=== PATIENT | male | born 1980 | race Two or more races ===

== ENCOUNTER 2018-03-19 10:55 | Day surgery (SDC) | payer BC ==
[2018-03-19] VITALS (10 sets, daily range): BP systolic 107–151; BP diastolic 64–87
[~2018-03-19] VITALS: Ht 175.3 cm; Wt 106.0 kg
[2018-03-19] MEDS ORDERED: normal saline 1000ml 1,000 ML IV SCH (11:20)
[2018-03-19] MEDS ORDERED: HYDR-565 PO (13:14)
[2018-03-19] MEDS ORDERED: MORP15TA PO (13:14)
[2018-03-19] MEDS ORDERED: midazolam 2 mg/2 ml injection IV PRN (13:35)
[2018-03-19] MEDS ORDERED: fentaNYL/PF 50MCG/1 ML 2ML syringe IV PRN (13:35)
[2018-03-19] MEDS ORDERED: LIDOcaine 0.5% (5mg/ml) 50ml vial ONE (13:43)
[2018-03-19] MEDS ORDERED: midazolam 2 mg/2 ml injection ONE (14:02)
[2018-03-19] MEDS ORDERED: fentaNYL/PF 50MCG/1 ML 2ML syringe ONE ×2 (14:02→14:24)
== END 2018-03-19 15:35 | disposition home or self-care (01) ==
LOC: SSTAY O 10:55
PROVIDERS: ATTEND Radiology Diagnostic Radiology
DX: K65.1 Peritoneal abscess (principal); B96.20 Unspecified Escherichia coli [E. coli] as the cause of diseases classified elsewhere; I10 Essential (primary) hypertension; Z90.49 Acquired absence of other specified parts of digestive tract; Z87.19 Personal history of other diseases of the digestive system
CPT/HCPCS: 10160; 77012; 87070; 87186; J2001; J2250; J3010; J7030; 87077; 99152; 99153; C1769

== ENCOUNTER 2018-03-25 09:03 | Outpatient (CLI) | payer BC ==
[~2018-03-25 09:03] MED LIST: HYDR-565 PO; MORP15TA PO
== END 2018-03-25 23:59 | disposition home or self-care (01) ==
LOC: RAD 09:03
PROVIDERS: ATTEND Surgery
DX: Z00.8 Encounter for other general examination (principal); I10 Essential (primary) hypertension; F17.200 Nicotine dependence, unspecified, uncomplicated; Z90.49 Acquired absence of other specified parts of digestive tract
CPT/HCPCS: 76857

== ENCOUNTER 2020-08-23 14:25 | Emergency (ER) | payer BC, MEDICAID ==
[~2020-08-23] VITALS: Ht 177.8 cm; Wt 114.0 kg
[~2020-08-23 14:25] MED LIST changes: +HYDR-4353 PO; -HYDR-565 PO
[2020-08-23 15:24] LABS: BASOPHILS # (AUTO) 0.1 X10'3 (0-0.2); BASOPHILS % (AUTO) 0.8 % (0-1); EOSINOPHILS # (AUTO) 0.2 X10'3 (0-0.9); EOSINOPHILS % (AUTO) 2.2 % (0-6); HEMATOCRIT 48.1 % (42.0-52.0); HEMOGLOBIN 16.6 g/dl (14.0-17.9); LYMPHOCYTES # (AUTO) 2.9 X10'3 (1.1-4.8); LYMPHOCYTES % (AUTO) 36.5 % (21-51); MEAN CORPUSCULAR HEMOGLOBIN 31.2 PG (27.0-31.0); MEAN CORPUSCULAR HGB CONC 34.5 g/dL (33.0-36.5); MEAN CORPUSCULAR VOLUME 90.4 FL (78-98); MEAN PLATELET VOLUME 7.7 FL (7.4-10.4); MONOCYTES # (AUTO) 0.6 X10'3 (0-0.9); MONOCYTES % (AUTO) 7.9 % (2-12); NEUTROPHILS # (AUTO) 4.1 X10'3 (1.8-7.7); NEUTROPHILS % (AUTO) 52.6 % (42-75); PLATELET COUNT 286 X10'3 (140-440); RED BLOOD COUNT 5.32 X10'6 (4.70-6.10); RED CELL DISTRIBUTION WIDTH 14.1 % (11.5-14.5); WHITE BLOOD COUNT 7.8 X10'3 (4.5-11.0)
[2020-08-23 15:39] LABS: ALANINE AMINOTRANSFERASE 67 U/L (12-78); ALBUMIN/GLOBULIN RATIO 1.1 (1.1-1.5); ALKALINE PHOSPHATASE 74 IU/L (46-116); ANION GAP 9 (8-16); ASPARTATE AMINO TRANSFERASE 32 U/L (10-37); BILIRUBIN,TOTAL 0.7 MG/DL (0.1-1.0); BLOOD UREA NITROGEN 15 MG/DL (7-18); BUN/CREATININE RATIO 14.9 (5.4-32.0); CHLORIDE 102 MMOL/L (99-107); CREATININE 1.01 MG/DL (0.60-1.10); GLUCOSE 103 MG/DL (70-104); POTASSIUM 3.6 MMOL/L (3.5-5.1); SODIUM 139 MMOL/L (135-145); TOTAL CARBON DIOXIDE 28.4 MMOL/L (24-32); TOTAL PROTEIN 7.8 G/DL (6.4-8.2); eGFR 81 ML/MIN
[2020-08-23 16:32] LABS: D-DIMER 0.26 MG/L FEU (0-0.50)
[2020-08-23 17:14] VITALS: BP 171/103
== END 2020-08-23 17:04 | disposition home or self-care (01) ==
LOC: ER 14:27
DX: R07.89 Other chest pain (principal); R09.1 Pleurisy; F17.210 Nicotine dependence, cigarettes, uncomplicated; I10 Essential (primary) hypertension; Z79.899 Other long term (current) drug therapy
CPT/HCPCS: 36415; 71045; 80053; 83880; 84484; 85025; 85379; 93005; 99285

== ENCOUNTER 2020-11-04 09:29 | Emergency (ER) | payer MEDICAID ==
[~2020-11-04] VITALS: Ht 177.8 cm; Wt 111.4 kg
[2020-11-04 09:32] VITALS: BP 156/108
[2020-11-04] MEDS ORDERED: AMOX-422 PO (11:19)
[2020-11-04] MEDS: TETanus/Pertussis (Acell)/Diphther VAC/PF (Tdap-Adult) 0.5ml syringe IMVAC ONE (11:36)
== END 2020-11-04 11:43 | disposition home or self-care (01) ==
LOC: ER 09:30
DX: S80.812A Abrasion, left lower leg, initial encounter (principal); I10 Essential (primary) hypertension; Z79.2 Long term (current) use of antibiotics; Z79.899 Other long term (current) drug therapy; Z20.3 Contact with and (suspected) exposure to rabies; W54.0XXA Bitten by dog, initial encounter; Y93.89 Activity, other specified; Y92.89 Other specified places as the place of occurrence of the external cause; Y99.8 Other external cause status
CPT/HCPCS: 90471; 90715; 99283

== ENCOUNTER 2022-08-26 09:41 | Emergency (ER) | payer MEDICAID ==
[~2022-08-26] VITALS: Ht 175.3 cm; Wt 113.6 kg
[2022-08-26 10:28] LABS: BASOPHILS % (AUTO) 0.8 % (0-1); EOSINOPHILS # (AUTO) 0.1 X10'3 (0-0.9); EOSINOPHILS % (AUTO) 1.7 % (0-6); HEMATOCRIT 46.9 % (42.0-52.0); HEMOGLOBIN 16.2 g/dl (14.0-17.9); LYMPHOCYTES # (AUTO) 2.6 X10'3 (1.1-4.8); LYMPHOCYTES % (AUTO) 43.6 % (21-51); MEAN CORPUSCULAR HEMOGLOBIN 30.9 PG (27.0-31.0); MEAN CORPUSCULAR HGB CONC 34.6 g/dL (33.0-36.5); MEAN CORPUSCULAR VOLUME 89.3 FL (78-98); MEAN PLATELET VOLUME 7.6 FL (7.4-10.4); MONOCYTES # (AUTO) 0.4 X10'3 (0-0.9); MONOCYTES % (AUTO) 6.5 % (2-12); NEUTROPHILS # (AUTO) 2.8 X10'3 (1.8-7.7); NEUTROPHILS % (AUTO) 47.4 % (42-75); PLATELET COUNT 249 X10'3 (140-440); RED BLOOD COUNT 5.24 X10'6 (4.70-6.10); RED CELL DISTRIBUTION WIDTH 13.7 % (11.5-14.5); WHITE BLOOD COUNT 5.9 X10'3 (4.5-11.0)
[2022-08-26 10:34] LABS: ALANINE AMINOTRANSFERASE 78 U/L (12-78); ALBUMIN 3.9 G/DL (3.4-5.0); ALBUMIN/GLOBULIN RATIO 1.1 (1.1-1.5); ALKALINE PHOSPHATASE 75 IU/L (46-116); ANION GAP 8 (8-16); ASPARTATE AMINO TRANSFERASE 32 U/L (10-37); BILIRUBIN,TOTAL 0.7 MG/DL (0.1-1.0); BLOOD UREA NITROGEN 10 MG/DL (7-18); CALCIUM 9.4 MG/DL (8.5-10.1); CHLORIDE 105 MMOL/L (99-107); CREATININE 0.83 MG/DL (0.60-1.10); GLUCOSE 179 MG/DL (70-104); POTASSIUM 3.7 MMOL/L (3.5-5.1); SODIUM 141 MMOL/L (135-145); TOTAL CARBON DIOXIDE 27.7 MMOL/L (24-32); TOTAL PROTEIN 7.5 G/DL (6.4-8.2); eGFR > 90 ML/MIN
[2022-08-26 10:40] LABS: D-DIMER 0.25 MG/L FEU (0-0.50)
[2022-08-26 11:33] VITALS: BP 145/94
== END 2022-08-26 11:39 | disposition home or self-care (01) ==
LOC: ER 09:42
DX: R07.9 Chest pain, unspecified (principal); I10 Essential (primary) hypertension; Z88.0 Allergy status to penicillin; Z88.2 Allergy status to sulfonamides; Z79.899 Other long term (current) drug therapy
CPT/HCPCS: 36415; 71045; 80053; 83880; 84484; 85025; 85379; 93005; 99285

== ENCOUNTER 2024-03-12 11:43 | Inpatient (IN) | payer BC, MEDICAID ==
[~2024-03-12] VITALS: Ht 175.3 cm; Wt 118.3 kg
[2024-03-12 13:05] LABS: BASOPHILS # (AUTO) 0.1 X10'3 (0-0.2); BASOPHILS % (AUTO) 0.6 % (0-1); EOSINOPHILS # (AUTO) 0.3 X10'3 (0-0.9); EOSINOPHILS % (AUTO) 2.9 % (0-6); HEMATOCRIT 48.9 % (42.0-52.0); HEMOGLOBIN 16.7 g/dl (14.0-17.9); LYMPHOCYTES # (AUTO) 3.2 X10'3 (1.1-4.8); LYMPHOCYTES % (AUTO) 29.5 % (21-51); MEAN CORPUSCULAR HEMOGLOBIN 30.2 PG (27.0-31.0); MEAN CORPUSCULAR VOLUME 88.7 FL (78-98); MEAN PLATELET VOLUME 7.8 FL (7.4-10.4); MONOCYTES # (AUTO) 0.6 X10'3 (0-0.9); MONOCYTES % (AUTO) 5.9 % (2-12); NEUTROPHILS # (AUTO) 6.6 X10'3 (1.8-7.7); NEUTROPHILS % (AUTO) 61.1 % (42-75); PLATELET COUNT 279 X10'3 (140-440); RED BLOOD COUNT 5.52 X10'6 (4.70-6.10); RED CELL DISTRIBUTION WIDTH 14.1 % (11.5-14.5); WHITE BLOOD COUNT 10.8 X10'3 (4.5-11.0)
[2024-03-12 13:23] LABS: ALANINE AMINOTRANSFERASE 93 U/L (12-78); ALBUMIN 3.9 G/DL (3.4-5.0); ALBUMIN/GLOBULIN RATIO 1.1 (1.1-1.5); ALKALINE PHOSPHATASE 94 IU/L (46-116); ANION GAP 10 (8-16); ASPARTATE AMINO TRANSFERASE 31 U/L (10-37); BILIRUBIN,TOTAL 0.3 MG/DL (0.1-1.0); BLOOD UREA NITROGEN 8 MG/DL (7-18); BUN/CREATININE RATIO 9.4 (10.0-20.0); CALCIUM 9.3 MG/DL (8.5-10.1); CHLORIDE 102 MMOL/L (99-107); CREATININE 0.85 MG/DL (0.60-1.10); GLUCOSE 153 MG/DL (70-104); POTASSIUM 3.8 MMOL/L (3.5-5.1); SODIUM 138 MMOL/L (135-145); TOTAL CARBON DIOXIDE 26.3 MMOL/L (24-32); TOTAL PROTEIN 7.4 G/DL (6.4-8.2); eCRCL 111 ML/MIN; eGFR > 90 ML/MIN
[2024-03-12 13:53] LABS: LIPASE > 375 U/L (16-77)
[2024-03-12] MEDS ORDERED: iohexol 350MG/ML 100ml bottle IV ONE (15:36)
[2024-03-12] MEDS ORDERED: metroNIDAZOLE-Flagyl 750mg/NS 150 ML IV ONE (16:40)
[2024-03-12 16:45] LABS: BILIRUBIN,URINE NEGATIVE (Neg); COLOR,URINE YELLOW (Yellow); GLUCOSE, URINE NEGATIVE (Neg); KETONES,URINE NEGATIVE (Neg); LEUKOCYTE ESTERASE ,URINE NEGATIVE (Neg); NITRITES, URINE NEGATIVE (Neg); OCCULT BLOOD,URINE NEGATIVE (Neg); PH,URINE 5.5 (4.8-8.0); PROTEIN,URINE NEGATIVE (Neg); UROBILINOGEN,URINE 0.2 E.U/dL (0.2-1.0)
[2024-03-12 16:52] LABS: CLARITY,URINE CLOUDY (Clear); UA COLLECTION TYPE CLN CATCH MIDSTREAM
[2024-03-12 16:54] LABS: HYALINE CASTS 0-3 /LPF (NEGATIVE); MUCUS STRANDS MODERATE /LPF (Neg); SQUAMOUS EPITHELIAL CELL,UR FEW /LPF (FEW)
[2024-03-12 16:55] LABS: CAL OXALATE CRYSTALS 4+ /HPF (NEGATIVE)
[2024-03-12 16:56] LABS: BACTERIA,URINE NONE SEEN /HPF (Neg); RBC,URINE 0-2 /HPF (0-2); WBC,URINE 0-4 /HPF (0-4)
[2024-03-12] MEDS: normal saline 1000ml 1,000 ML IV ONE (17:05)
[2024-03-12] MEDS: metroNIDAZOLE-Flagyl 500mg/NS 100ML IVPB IV ONE (17:40)
[2024-03-12 17:44] LABS: AMYLASE 238 U/L (25-115)
[2024-03-12 18:10] LABS: LIPASE > 375 U/L (16-77)
[2024-03-12] MEDS: HYDROmorphone inj. 0.5 MG/0.5 ML DISP.SYRIN IV ONE (18:53)
[2024-03-12] MEDS: levoFLOXACIN-Levaquin 750MG/D5 150 ML IV ONE (18:57)
[2024-03-12] MEDS ORDERED: morphine 2 MG/ML inj. syringe IV PRN (20:15)
[2024-03-12] MEDS ORDERED: potassium Cl 40MEQ/1/2NS 520ml 520 ML IV PRN (20:15)
[2024-03-12] MEDS ORDERED: acetaminophen 325mg tablet PO PRN (20:15)
[2024-03-12] MEDS ORDERED: mag hydrox/Alum hydrox/simeth 30ml oral suspension PO PRN (20:15)
[2024-03-12] MEDS ORDERED: magnesium Cl slow-release 64mg tablet PO PRN (20:15)
[2024-03-12] MEDS ORDERED: magnesium 4gm in 100ml NS 100 ML IV PRN (20:15)
[2024-03-12] MEDS ORDERED: potassium Cl 20 mEq SR tablet PO PRN ×2 (20:15)
[2024-03-12] MEDS ORDERED: magnesium 2GM in 50ml NS 50 ML IV PRN (20:15)
[2024-03-12] MEDS ORDERED: METF-436 PO (21:16)
[2024-03-12] MEDS ORDERED: VALS80TA32 PO (21:16)
[2024-03-12] MEDS: ringers solution, lacted 1,000 ML IV SCH (21:27)
[2024-03-12] MEDS ORDERED: glucagon, human recombinant 1mg kit SUBCUT PRN (22:45)
[2024-03-12] MEDS ORDERED: DEXTROSE 15 GM of carb/4 tabs (each vial/BOTTLE has 4 tablets) PO PRN ×2 (22:45)
[2024-03-12] MEDS ORDERED: dextrose 50%-water 50ml dispensing syringe IV PRN ×2 (22:45)
[2024-03-12 23:19] LABS: HEMOGLOBIN A1C 6.4 % (4.5-6.2)
[2024-03-13] MEDS: metroNIDAZOLE-Flagyl 500mg/NS 100 ML IV SCH (00:11)
[2024-03-13] MEDS: INSULIN LISPRO 100 UNIT/ML INSULN.PEN MULTI-DOSE SQ SCH (07:00)
[2024-03-13] MEDS: pantoprazole 40mg Tablet.DR PO SCH (07:30)
[2024-03-13] MEDS: K and/or MAG REPLACEMENT MC SCH (08:00)
[2024-03-13 08:11] LABS: BASOPHILS % (AUTO) 0.4 % (0-1); EOSINOPHILS # (AUTO) 0.3 X10'3 (0-0.9); EOSINOPHILS % (AUTO) 3.9 % (0-6); HEMATOCRIT 47.5 % (42.0-52.0); HEMOGLOBIN 16.3 g/dl (14.0-17.9); LYMPHOCYTES # (AUTO) 3.3 X10'3 (1.1-4.8); LYMPHOCYTES % (AUTO) 40.1 % (21-51); MEAN CORPUSCULAR HEMOGLOBIN 30.3 PG (27.0-31.0); MEAN CORPUSCULAR HGB CONC 34.4 g/dL (33.0-36.5); MEAN PLATELET VOLUME 7.7 FL (7.4-10.4); MONOCYTES # (AUTO) 0.5 X10'3 (0-0.9); MONOCYTES % (AUTO) 5.9 % (2-12); NEUTROPHILS # (AUTO) 4.2 X10'3 (1.8-7.7); NEUTROPHILS % (AUTO) 49.7 % (42-75); PLATELET COUNT 258 X10'3 (140-440); RED BLOOD COUNT 5.39 X10'6 (4.70-6.10); RED CELL DISTRIBUTION WIDTH 14.1 % (11.5-14.5); WHITE BLOOD COUNT 8.4 X10'3 (4.5-11.0)
[2024-03-13 08:44] LABS: ALANINE AMINOTRANSFERASE 94 U/L (12-78); ALBUMIN 3.5 G/DL (3.4-5.0); ALKALINE PHOSPHATASE 66 IU/L (46-116); ANION GAP 6 (8-16); ASPARTATE AMINO TRANSFERASE 39 U/L (10-37); BILIRUBIN,TOTAL 0.8 MG/DL (0.1-1.0); BLOOD UREA NITROGEN 8 MG/DL (7-18); BUN/CREATININE RATIO 9.9 (10.0-20.0); CALCIUM 8.7 MG/DL (8.5-10.1); CHLORIDE 105 MMOL/L (99-107); CREATININE 0.81 MG/DL (0.60-1.10); GLUCOSE 123 MG/DL (70-104); MAGNESIUM 1.9 MG/DL (1.5-2.4); POTASSIUM 4.1 MMOL/L (3.5-5.1); SODIUM 140 MMOL/L (135-145); TOTAL CARBON DIOXIDE 29.3 MMOL/L (24-32); TOTAL PROTEIN 7.1 G/DL (6.4-8.2); eCRCL 116 ML/MIN; eGFR > 90 ML/MIN
[2024-03-13] MEDS: ondansetron/PF 4mg/2ml inj IV PRN (08:47)
[2024-03-13] MEDS: losartan 50mg tablet PO SCH (08:47)
[2024-03-13] MEDS: docusate sod 100mg capsule PO SCH (08:47)
[2024-03-13] MEDS: morphine 2 MG/ML inj. syringe IV PRN (08:48)
[2024-03-13 09:21] LABS: C-REACTIVE PROTEIN 0.24 MG/DL (0.0-0.5); LIPASE 47 U/L (16-77)
[2024-03-13] MEDS ORDERED: haloperidol 5mg tablet PO PRN (12:05)
[2024-03-13] MEDS ORDERED: LORazepam 1 MG tablet PO PRN (12:05)
[2024-03-13] MEDS: folic acid 1mg/0.2ml inj IV SCH (12:05)
[2024-03-13] MEDS: normal saline 1000ml 1,000 ML IV SCH (13:59)
[2024-03-13] MEDS: pantoprazole 40 MG vial IV SCH (14:03)
[2024-03-13] MEDS: thiamine 100mg/ml 2ml inj. IV SCH (14:05)
[2024-03-13 14:23] LABS: URINE AMPHETAMINE SCREEN NEGATIVE (Neg); URINE BARBITUATE SCREEN NEGATIVE (Neg); URINE BENZODIAZEPINES SCREEN NEGATIVE (Neg); URINE CANNABINOID SCREEN POSITIVE (Neg); URINE COCAINE SCREEN NEGATIVE (Neg); URINE METHADONE SCREEN NEGATIVE (Neg); URINE OPIATE SCREEN NEGATIVE (Neg); URINE PHENCYCLIDINE SCREEN NEGATIVE (Neg)
[2024-03-13 18:00] VITALS: BP 136/73; PULSE 74; RESP 15; TEMP 97.9; O2SAT 98
[2024-03-13 20:00] VITALS: RESP 18; O2SAT 98
[2024-03-13] MEDS: enoxaparin 40mg/0.4ml syringe SUBCUT SCH (20:00)
[2024-03-13] MEDS: levoFLOXACIN-Levaquin 750MG/D5 150 ML IV SCH (21:02)
[2024-03-13 22:00] VITALS: BP 144/97; PULSE 68; RESP 18; TEMP 98.8; O2SAT 77; O2SAT 97
[2024-03-14 06:00] VITALS: BP 131/83; PULSE 83; RESP 18; TEMP 98; O2SAT 96
[2024-03-14 06:51] LABS: BASOPHILS % (AUTO) 0.4 % (0-1); EOSINOPHILS # (AUTO) 0.2 X10'3 (0-0.9); EOSINOPHILS % (AUTO) 2.8 % (0-6); HEMATOCRIT 49.7 % (42.0-52.0); HEMOGLOBIN 17.2 g/dl (14.0-17.9); LYMPHOCYTES # (AUTO) 3.4 X10'3 (1.1-4.8); LYMPHOCYTES % (AUTO) 39.8 % (21-51); MEAN CORPUSCULAR HEMOGLOBIN 30.7 PG (27.0-31.0); MEAN CORPUSCULAR HGB CONC 34.6 g/dL (33.0-36.5); MEAN CORPUSCULAR VOLUME 88.7 FL (78-98); MEAN PLATELET VOLUME 7.5 FL (7.4-10.4); MONOCYTES # (AUTO) 0.6 X10'3 (0-0.9); MONOCYTES % (AUTO) 7.1 % (2-12); NEUTROPHILS # (AUTO) 4.2 X10'3 (1.8-7.7); NEUTROPHILS % (AUTO) 49.9 % (42-75); PLATELET COUNT 288 X10'3 (140-440); RED CELL DISTRIBUTION WIDTH 14.2 % (11.5-14.5); WHITE BLOOD COUNT 8.5 X10'3 (4.5-11.0)
[2024-03-14 07:11] LABS: ALANINE AMINOTRANSFERASE 98 U/L (12-78); ALBUMIN 3.9 G/DL (3.4-5.0); ALKALINE PHOSPHATASE 68 IU/L (46-116); ANION GAP 6 (8-16); ASPARTATE AMINO TRANSFERASE 44 U/L (10-37); BILIRUBIN,TOTAL 1.2 MG/DL (0.1-1.0); BLOOD UREA NITROGEN 8 MG/DL (7-18); CALCIUM 8.9 MG/DL (8.5-10.1); CHLORIDE 102 MMOL/L (99-107); CREATININE 0.89 MG/DL (0.60-1.10); GLUCOSE 137 MG/DL (70-104); LIPASE 41 U/L (16-77); POTASSIUM 3.6 MMOL/L (3.5-5.1); SODIUM 138 MMOL/L (135-145); TOTAL CARBON DIOXIDE 29.6 MMOL/L (24-32); TOTAL PROTEIN 7.8 G/DL (6.4-8.2); eCRCL 106 ML/MIN; eGFR > 90 ML/MIN
[2024-03-14] MEDS: chlorthalidone 25mg tablet PO SCH (08:46)
[2024-03-14] MEDS: multivitamins, therapeutics tablet PO SCH (08:49)
[2024-03-14] MEDS ORDERED: thiamine tablet PO (12:47)
[2024-03-14] MEDS ORDERED: CHLO25TA11 PO (12:47)
[2024-03-14] MEDS ORDERED: LACT1CAP26 PO (12:47)
[2024-03-14] MEDS ORDERED: FOLI1TAB27 PO (12:47)
[2024-03-14] MEDS ORDERED: METR-349 PO (12:47)
[2024-03-14] MEDS ORDERED: PANTOPRAZOLE 40 MG (12:47)
[2024-03-14] MEDS ORDERED: LEVO750T68 PO (12:47)
[2024-03-17] MEDS ORDERED: thiamine 100mg tablet PO SCH (08:00)
[2024-03-18] MEDS ORDERED: folic acid 1mg tablet PO SCH (08:00)
== END 2024-03-14 13:30 | disposition home or self-care (01) | DRG 391 ==
LOC: ER 11:43 → UNDOADMIN 20:14 → ED HOLD 20:14 → ORTHO 4S 03-13 15:20
PROVIDERS: ADMIT Surgery Surgical Critical Care; ATTEND Family Medicine
DX: K29.70 Gastritis, unspecified, without bleeding (principal); K85.90 Acute pancreatitis without necrosis or infection, unspecified; K57.32 Diverticulitis of large intestine without perforation or abscess without bleeding; I10 Essential (primary) hypertension; E11.9 Type 2 diabetes mellitus without complications; F10.10 Alcohol abuse, uncomplicated; K52.9 Noninfective gastroenteritis and colitis, unspecified; Z88.2 Allergy status to sulfonamides; Z88.0 Allergy status to penicillin; Z91.013 Allergy to seafood; Z79.899 Other long term (current) drug therapy
CPT/HCPCS: 36415; 74177; 80053; 80305; 81001; 82150; 82948; 83036; 83605; 83690; 83735; 84132; 84145; 85025; 86140; 87081; 99291; C9113; G0378; J1170; J1956; J2270; J2405; J3411; J3490; J7030; J7120; Q9967

== ENCOUNTER 2024-08-28 07:29 | Day surgery (SDC) | payer BC ==
[~2024-08-28] VITALS: Ht 177.8 cm; Wt 111.3 kg
[~2024-08-28 07:29] MED LIST changes: +ALBUTEROL; -HYDR-4353 PO; +LIPA1CAP18 PO; +METF-436 PO; -MORP15TA PO; +SILD25TA PO; +SUMA50TA17
[2024-08-28 07:48] VITALS: BP 152/89; PULSE 74; RESP 16; TEMP 97.8
[2024-08-28] MEDS ORDERED: simethicone 40mg/0.6ml oral drops 30ml ONE (08:22)
[2024-08-28] MEDS ORDERED: propofol inj 20 ML IV ONE ×3 (08:28→08:52)
[2024-08-28 09:05] VITALS: BP 129/83; PULSE 69; RESP 13; O2SAT 100
[2024-08-28 09:15] VITALS: BP 121/88; PULSE 75; RESP 14; O2SAT 100
[2024-08-28 09:25] VITALS: BP 135/86; PULSE 68; RESP 16; O2SAT 99
[2024-08-28 09:35] VITALS: BP 144/88; PULSE 70; RESP 18; O2SAT 99
== END 2024-08-28 09:40 | disposition home or self-care (01) ==
LOC: GI LAB 07:29
PROVIDERS: ATTEND Internal Medicine Gastroenterology
DX: R19.4 Change in bowel habit (principal); R11.0 Nausea; R10.13 Epigastric pain; K57.30 Diverticulosis of large intestine without perforation or abscess without bleeding; K29.50 Unspecified chronic gastritis without bleeding; K21.00 Gastro-esophageal reflux disease with esophagitis, without bleeding; K63.3 Ulcer of intestine; I10 Essential (primary) hypertension; E11.9 Type 2 diabetes mellitus without complications; Z86.73 Personal history of transient ischemic attack (TIA), and cerebral infarction without residual deficits; Z79.84 Long term (current) use of oral hypoglycemic drugs; Z79.899 Other long term (current) drug therapy; Z90.49 Acquired absence of other specified parts of digestive tract; Z98.890 Other specified postprocedural states; Z88.0 Allergy status to penicillin; Z88.2 Allergy status to sulfonamides; Z91.013 Allergy to seafood; Z80.0 Family history of malignant neoplasm of digestive organs
CPT/HCPCS: 43239; 45380; 82948; J2704; J7030; Z7512; A4620

== ENCOUNTER 2024-11-03 23:08 | Emergency (ER) | payer BC ==
[~2024-11-03] VITALS: Ht 175.3 cm; Wt 117.2 kg
[2024-11-03 23:14] VITALS: BP 145/82; PULSE 88; TEMP 98.2; O2SAT 97
[2024-11-04] MEDS ORDERED: AMOX875T2 PO (00:20)
[2024-11-04] MEDS: amoxicillin 250mg capsule PO ONE ×2 (00:38→00:39)
[2024-11-04 00:39] VITALS: RESP 18
[2024-11-04] MEDS: ketorolac trometh 15mg/ml vial 15 MG/ML ML IM ONE (00:39)
== END 2024-11-04 00:46 | disposition home or self-care (01) ==
LOC: ER 23:09
DX: H66.91 Otitis media, unspecified, right ear (principal); I10 Essential (primary) hypertension; F12.90 Cannabis use, unspecified, uncomplicated; Z88.0 Allergy status to penicillin; Z88.2 Allergy status to sulfonamides
CPT/HCPCS: 96372; 99283; J1885

== ENCOUNTER 2024-11-20 11:22 | Emergency (ER) | payer BC ==
[~2024-11-20] VITALS: Ht 175.3 cm; Wt 117.0 kg
[2024-11-20 11:53] VITALS: BP 166/98; PULSE 85; RESP 18; TEMP 98.6; O2SAT 96
== END 2024-11-20 14:05 | disposition home or self-care (01) ==
LOC: ER 11:22
DX: S61.211A Laceration without foreign body of left index finger without damage to nail, initial encounter (principal); I10 Essential (primary) hypertension; F12.90 Cannabis use, unspecified, uncomplicated; Z88.0 Allergy status to penicillin; Z88.2 Allergy status to sulfonamides; X58.XXXA Exposure to other specified factors, initial encounter; Y93.89 Activity, other specified; Y92.89 Other specified places as the place of occurrence of the external cause; Y99.8 Other external cause status
CPT/HCPCS: 12001; 99282; A6258

== ENCOUNTER 2025-04-04 15:21 | Emergency (ER) | payer BC ==
[~2025-04-04] VITALS: Ht 175.3 cm; Wt 116.1 kg
[2025-04-04 15:22] VITALS: TEMP 98.2
--- NOTE | 2025-04-04 15:25 | Physician Documentation ---
History of Present Illness Stated Complaint: GALLBLADDER ISSUES Primary Medical Doctor: gino HENRY 44-year-old male presents to the ED with a complaint of right upper quadrant a bdominal pain. He states that he was supposed to have his gallbladder taken out secondary to cholecystitis and/or cholelithiasis but due to insurance labs we have been unable to have it done. Today he presents with increased pain especially after eating. Medication Reconciliation Allergies: Coded Allergies: Penicillins (Verified Allergy, Unknown, 10/19/24) Sulfa (Sulfonamide Antibiotics) (Verified Allergy, Unknown, 10/19/24) Uncoded Allergies: SHELLFISH (Allergy, Unknown, 08/26/22) Scheduled Lipase/Protease/Amylase (Creon Dr 36,000 Units Capsule), 1 CAP PO TID, (Reported) Metformin Hcl (Metformin Hcl), 1 TAB PO DAILY, (Reported) Sildenafil Citrate* (Viagra*), 1 TAB PO DAILY, (Reported) Miscellaneous Medications Sumatriptan Succinate (Sumatriptan Succinate), (Reported) [Albuterol], (Reported) Past Medical History Past Medical History: Hypertension Past Surgical History: other Alcohol Use: None Drug Use: none, marijuana Lives with: Spouse Lives In: Home Review of Systems ROS Constitutional: Denies chills, fatigue, fever, weight gain or weight loss. HEENT: Denies hearing loss, sinus pressure or visual changes. Respiratory: Denies cough, shortness of breath or wheezing. Cardiovascular: Denies chest pain, pain while walking (claudication), edema or palpitations. Gastrointestinal: Right upper quadrant discomfort. No nausea, vomiting or diarrhea. Genitourinary: Denies painful urination (dysuria), excessive amount of urine (polyuria) or urinary frequency. Metabolic/Endocrine: Denies cold intolerance, heat intolerance, excessive thirst (polydipsia) or excessive hunger (polyphagia). Neurological: Denies dizziness, extremity numbness, extremity weakness, headaches, seizures or tremors. Psychiatric: Denies anxiety or depression. Integumentary: Denies breast discharge, breast lump, hives, mole change(s), rash or skin lesion. Musculoskeletal: Denies back pain, joint pain, joint swelling or neck pain. Hematologic: Denies easily bleeding, easily bruises, lymphedema or issues with blood clots. Immunologic: Denies food allergies or seasonal allergies. Physical Exam Physical Exam General: Alert, no apparent distress. HEENT: PERRL, EOMI, no injection, moist mucous membranes. Gastrointestinal: Soft, R UQ quadrant tenderness nondistended bowel sounds present Extremities: Normal range of motion, no deformity. Neurologic: Oriented x4. Psychiatric: Normal mood and affect. Skin: Normal color, warm and dry. No edema, no ecchymosis. Medical Decision Making Findings This 44-year-old male with gallbladder stones and type 2 diabetes came into check his electrolytes because he has been having some muscle spasms. Does have some elevation of his liver function tests but no leukocytosis. He has been advised by surgeon that he should have a cholecystectomy and he is going to follow up. His PCP discontinued his metformin and his current glucose is 343. I have asked him to follow up with his PCP again in follow-up with the surgeon. Departure Disposition: 01 HOME / SELF CARE / HOMELESS Impression: Primary Impression: Cholelithiasis without obstruction Additional Impression: Type 2 diabetes mellitus Condition: Stable Additional Instructions: Be sure to follow-up with your PCP and with the surgeon. In the meantime, do not hesitate to return here for worsening symptoms or new/unusual symptoms. It is important to see your doctor or primary care provider. Emergency care may be incomplete without proper follow-up. Symptoms sometimes change or new symptoms might arise after you leave the emergency department. It is important that you call your doctor if you become worse in any way, or return to the emergency department. You are strongly urged to follow-up with your physician to assure complete and thorough care. Please call your doctor's office today, and informed them that you were seen in the emergency department, and that you need to be seen immediately for close follow-up. If you do not have a primary care doctor we encourage you to proactively seek a local physician for close follow-up. Consider local clinics[facility] hospital, or local [facility] [place]. Prior to discharge we spoke at length concerning symptoms that would merit reevaluation, but please return to the emergency department for any symptoms that are concerning to you, and we will be happy to continue your evaluation and treatment. Please note you can always return to the emergency department if you are having difficulty coordinating close follow-up. If medications were prescribed, you should fill them at your local pharmacy immediately and take only as prescribed. Bring your new medications to your doctors follow-up visit to discuss any changes that would be necessary. Please check [facility] for any results you did not receive in the Emergency Department: o ften we are unable to get all your tests back before you leave, and these tests need to be reviewed by your PCP and yourself. You can also call Medical Records if you are unable to access the internet to see MyChart. Return to the emergency department immediately for worsening chest pain, difficulty breathing, sweating, or other concerning emergent symptoms. Referrals: NO PRIMARY CARE PROVIDER (PCP) Education Educated: Patient Educated regarding: diagnosis, treatment, prognosis, need for follow up Signature Scribe Signature: . Attestation: . ANIBAL WISE NP Apr 04, 2025 15:25 LESLY WILLIS MD Apr 04, 2025 17:22
[2025-04-04 15:50] LABS: BILIRUBIN,URINE NEGATIVE (Neg); CLARITY,URINE CLEAR (Clear); COLOR,URINE YELLOW (Yellow); GLUCOSE, URINE >=1000 mg/dl (Neg); KETONES,URINE NEGATIVE (Neg); LEUKOCYTE ESTERASE ,URINE NEGATIVE (Neg); NITRITES, URINE NEGATIVE (Neg); OCCULT BLOOD,URINE NEGATIVE (Neg); PROTEIN,URINE NEGATIVE (Neg); UROBILINOGEN,URINE 0.2 E.U/dL (0.2-1.0)
[2025-04-04 15:56] LABS: UA COLLECTION TYPE CLN CATCH MIDSTREAM
[2025-04-04 15:58] LABS: RBC,URINE NONE SEEN /HPF (0-2); WBC,URINE 0-4 /HPF (0-4)
[2025-04-04 16:00] LABS: BACTERIA,URINE FEW /HPF (Neg); MUCUS STRANDS NONE SEEN /LPF (Neg); SQUAMOUS EPITHELIAL CELL,UR NONE SEEN /LPF (FEW)
[2025-04-04 16:23] LABS: BASOPHILS % (AUTO) 0.6 % (0-1); EOSINOPHILS # (AUTO) 0.2 X10'3 (0-0.9); EOSINOPHILS % (AUTO) 2.3 % (0-6); HEMATOCRIT 50.8 % (42.0-52.0); HEMOGLOBIN 17.5 g/dl (14.0-17.9); LYMPHOCYTES # (AUTO) 2.7 X10'3 (1.1-4.8); LYMPHOCYTES % (AUTO) 38.3 % (21-51); MEAN CORPUSCULAR HEMOGLOBIN 29.6 PG (27.0-31.0); MEAN CORPUSCULAR HGB CONC 34.5 g/dL (33.0-36.5); MEAN CORPUSCULAR VOLUME 85.7 FL (78-98); MEAN PLATELET VOLUME 8.4 FL (7.4-10.4); MONOCYTES # (AUTO) 0.4 X10'3 (0-0.9); NEUTROPHILS # (AUTO) 3.8 X10'3 (1.8-7.7); NEUTROPHILS % (AUTO) 52.8 % (42-75); PLATELET COUNT 237 X10'3 (140-440); RED BLOOD COUNT 5.93 X10'6 (4.70-6.10); WHITE BLOOD COUNT 7.2 X10'3 (4.5-11.0)
[2025-04-04 16:34] LABS: ALANINE AMINOTRANSFERASE 106 U/L (12-78); ALBUMIN 4.2 G/DL (3.4-5.0); ALBUMIN/GLOBULIN RATIO 1.1 (1.1-1.5); ALKALINE PHOSPHATASE 121 IU/L (46-116); ANION GAP 9 (8-16); ASPARTATE AMINO TRANSFERASE 64 U/L (10-37); BLOOD UREA NITROGEN 12 MG/DL (7-18); BUN/CREATININE RATIO 10.6 (10.0-20.0); CALCIUM 9.5 MG/DL (8.5-10.1); CHLORIDE 96 MMOL/L (99-107); CREATININE 1.13 MG/DL (0.60-1.10); GLUCOSE 363 MG/DL (70-104); LIPASE 56 U/L (16-77); SODIUM 135 MMOL/L (135-145); TOTAL CARBON DIOXIDE 29.8 MMOL/L (24-32); eCRCL 83 ML/MIN; eGFR 70 ML/MIN
[2025-04-04 16:36] LABS: BILIRUBIN,TOTAL 0.9 MG/DL (0.1-1.0); POTASSIUM 4.3 MMOL/L (3.5-5.1)
[2025-04-04 17:58] VITALS: BP 139/85; PULSE 86; RESP 16; O2SAT 98
--- NOTE | 2025-04-04 18:32 | RADIOLOGY REPORT ---
INDICATION: RUQ TECHNIQUE: Multiple real-time sonographic images of the abdomen were obtained. COMPARISON: None FINDINGS: Liver is increased in echogenicity. The liver measures 17.7 cm. No intrahepatic biliary ductal dilatation is noted. The gallbladder wall measures 0.2 cm and is unremarkable. No gallstones or gallbladder sludge. No pericholecystic fluid or edema. Positive sonographic saldana's sign. The common duct measures 0.5 cm and is unremarkable. The right kidney measures 10.8 cm. No hydronephrosis. 1.9 x 1.8 x 2.2 cm simple cyst noted in the rig ht kidney. The pancreas is not well visualized due to obscuration from bowel gas. The visualized portions of the IVC and aorta are grossly unremarkable. IMPRESSION: Nonspecific positive sonographic saldana's sign, with otherwise no evidence of cholelithiasis or acute cholecystitis. Borderline hepatomegaly. Findings of hepatic steatosis / parenchymal dysfunction.
== END 2025-04-04 18:01 | disposition home or self-care (01) ==
LOC: ER 15:22
DX: K80.20 Calculus of gallbladder without cholecystitis without obstruction (principal); E11.9 Type 2 diabetes mellitus without complications; F12.90 Cannabis use, unspecified, uncomplicated; I10 Essential (primary) hypertension; Z88.0 Allergy status to penicillin; Z88.2 Allergy status to sulfonamides; Z79.899 Other long term (current) drug therapy
CPT/HCPCS: 36415; 76700; 80053; 81001; 83690; 85025; 99284